=== PATIENT | female | born 1935 | race Caucasian/White ===

== ENCOUNTER 2017-03-08 21:50 | Inpatient (IN) | payer MEDICARE, BC ==
[~2017-03-08] VITALS: Ht 160 cm; Wt 76.2 kg
--- NOTE | ~2017-03-08 | HP ---
ADMIT: 03/08/2017 RM/LOC: 512 [facility] MR#: [id number] [address] [address] [address] [place] [address] Pre-OP History and Physical SEX: F AGE: 81 : 1935 DATE OF SERVICE: CHIEF COMPLAINT: Right hip pain. PRESENT ILLNESS: The patient is an 81-year-old, white female, who has been having 2 or 3-day history of some right hip pain, it drastically got worse yesterday. She was seen in [place] ER and noted to have a displaced femoral neck fracture. PAST MEDICAL HISTORY: The patient one year ago had a left total knee arthroplasty by Dr. Grande, but she was transferred down to [facility]. MEDICATIONS AND ALLERGIES: Please see Dr. Dominguez's medication allergy list. SOCIAL HISTORY: The patient does not smoke or drink alcohol. Again, lives in the [facility]. PHYSICAL EXAMINATION: HEENT: Normocephalic and atraumatic. CV: Regular rate and rhythm. LUNGS: Benign. ABDOMEN: Benign. NEUROLOGICAL: Awake, alert, and oriented x3. MUSCULOSKELETAL: Shows right leg is shortened and externally rotated. Tenderness with toggling in the groin that radiates down the thigh. IMAGING: X-rays show right displaced femoral neck fracture. I do not appreciate any masses. ASSESSMENT AND PLAN: Right hip femoral neck fracture. At this point in time, I believe this is probably a stress fracture, but at the time of bipolar replacement we will evaluate the bone and see if we have to send anything away for pathological analysis. We will plan right hip bipolar. The patient understands the risks and benefits of the surgical intervention and desires to proceed. Triston Kirkland MD/ jade JOB #: [id number] CC: Triston Kirkland, Attending Physician Triston Kirkland, Family Physician
--- NOTE | 2017-03-12 15:05 | OR ---
ADMIT: 03/08/2017 RM/LOC: 512 [facility] MR#: [id number] [address] [address] [place] [address] [address] [place] [address] Operative/Delivery Room Report SEX: F AGE: 81 : 1935 SURGERY DATE: 03/09/2017 SURGEON: Triston Kirkland MD PREOPERATIVE DIAGNOSIS: Right displaced femoral neck stress fracture. POSTOPERATIVE DIAGNOSIS: Right displaced femoral neck stress fracture. PROCEDURE PERFORMED: Right hip bipolar placement with a DePuy system size 3 press-fit fracture stem, a +5 neck length on a 28 inner diameter head. We used a 46 outer diameter bipolar head. FRONT DESK HOST: CHRISTEN Lopez ANESTHESIA: General. ESTIMATED BLOOD LOSS: 100 mL. FLUIDS: Per anesthetic record. COMPLICATIONS: None. DRAINS: None. TOURNIQUET TIME: None. CONDITION ON DISCHARGE: The patient returned to the recovery room in fair condition. INDICATION: The patient sustained the above fracture. She desires surgical intervention. She understood the risks and benefits of procedure and desired to proceed with the operation. DESCRIPTION OF PROCEDURE: The patient was taken to the OR, underwent general anesthesia, laid in the left lateral decubitus position on the OR table. All bony prominences were well padded. Axillary roll was placed. Right hip was prepped and draped in usual sterile fashion. Posterolateral approach was undertaken to the hip. A #10 blade was used to make the incision centered over the greater trochanter for approximately 8-9 inches through the skin and subcutaneous tissue. IT band and vastus lateralis fascia was split in line with the skin incision using a Sheppard scissors. Gluteus zarina was then split in line with its fibers bluntly. Charnley retractor was then placed. External rotators were identified, tagged, cut and reflected posteriorly where capsule was then T'ed. I cut the femoral neck with an oscillating saw one fingerbreadth above the lesser trochanter at a 45-degree angle to the long axis of the femur. I then removed the femoral head and removed any extra bone fragments. This area was thoroughly irrigated with bacitracin solution. I used a box osteotome and removed some lateral femoral neck cortex. I then sequentially reamed and broached to a size 3 broach. Trial components of a +5 ADMIT: 03/08/2017 RM/LOC: 512 [facility] MR#: [id number] [address] [address] [place] M[place]ON[place] [address] [place] [id number] Operative/Delivery Room Report SEX: F AGE: 81 : 1935 neck with a 46 outer diameter head gave excellent range of motion and stability. Thus the trial components were then removed and the hip was thoroughly irrigated with bacitracin solution and dried. The implant was then impacted into place and the hip reduced. I then closed the capsule using #1 Vicryl, ran the hip through range of motion, it had excellent range of motion and stability. External rotators were then reapproximated into the piriformis fossa using drill holes and the Vicryl suture. IT band closed using #1 Vicryl, gluteus zarina fascia closed using #1 Vicryl, subcutaneous tissue closed in layers using 2-0 Vicryl, and skin closed using ang. Wounds were washed, dried, dressed with sterile Adaptic, 4x4s, ABD, and Medipore tape. Drapes were removed. The patient was reversed from general anesthesia, placed in a knee immobilizer, and taken back to the recovery room in fair condition. Triston Kirkland MD/ jade JOB #: [id number] CC: Triston Kirkland, Attending Physician Triston Kirkland, Family Physician
--- NOTE | 2017-03-13 08:26 | ER ---
ADMIT: 03/08/2017 RM/LOC: 512 [facility] MR#: [id number] [address] [address] [address] [place] [address] Emergency Room Report SEX: F AGE: 81 : 1935 DATE: 03/08/2017 CHIEF COMPLAINT: Right hip fracture. HISTORY OF PRESENT ILLNESS: The patient is an 81-year-old female, who comes from [place] via ambulance for further management of a right hip fracture. The patient denies any fall or injury that would have caused trauma or a fracture that she can recall. She lives at home alone, is otherwise fairly healthy for her age. She does have a diagnosis of hypertension, high cholesterol, and a previous left knee replacement. She states that she began having some worsening pain in her right knee at close to bedtime last night but was still able to ambulate during the evening without any difficulty. When she woke up this morning, she had continued right knee pain but worsening pain in her right thigh, and when she tried to bear weight, she had increasing pain in her thigh and her right groin area. She went in to [facility] where they evaluated her and did x-rays, which showed she had a right displaced hip fracture. They contacted Dr. Kirkland and the patient was transferred to our Emergency Department for evaluation and further management. The patient denies any recent illness. She does not have any chest pain or shortness of breath. She denies any abdominal pain, change in bowel or bladder function, or fevers or chills. PAST MEDICAL HISTORY: Hypertension, high cholesterol. PAST SURGICAL HISTORY: Left knee replacement and cataract surgery. MEDICATIONS: See nurse's note. ALLERGIES: NONE. SOCIAL HISTORY: Denies smoking, drug, or alcohol use. Does live at home alone. PHYSICAL EXAMINATION: VITAL SIGNS: Blood pressure is 166/68, pulse 79, respirations 19, temp 98.2, sats 98% on room air. HEENT: Head is atraumatic and normocephalic. Pupils are equal, round, and reactive to light. NECK: Supple. HEART: Regular rate and rhythm. LUNGS: Clear to auscultation. ABDOMEN: Soft, nontender, and nondistended. EXTREMITIES: The patient can move upper extremities without any difficulty. She has good sensation in all 4 extremities. Her right leg is shortened and externally rotated. She has good sensation distally in the right lower extremity and good pulses. She has 1+ pedal edema equal bilateral lower extremities. She does have pain with rotation of her right hip and is unable to flex the hip secondary to pain. She does have a [place] in place. SKIN: Warm and dry. No skin rashes or lesions are noted. Urine in the [place] bag does appear somewhat cloudy. ADMIT: 03/08/2017 RM/LOC: 512 [facility] MR#: [id number] [address] [place] [id number] [place] [address] Emergency Room Report SEX: F AGE: 81 : 1935 EMERGENCY DEPARTMENT COURSE: The patient had most of her workup done prior to arrival in the ER. I did try to get her images loaded into our PAC system, we were unable to. I shot another right hip film and pelvis film which demonstrates the displaced right intertrochanteric hip fracture. Because her urine did appear cloudy, we went ahead and got a urinalysis also even though she had no urinary complaints, which shows that she has 2198 white blood cells, white blood cell clumps, and 3+ leuk esterase. Based on her urinalysis, she does have a urinary tract infection and she was given a dose of Cipro in the Emergency Department. I spoke to Dr. Kirkland, who is on for Orthopedics, and he will be admitting the patient with Medicine to follow. She is to be n.p.o. after midnight. DIAGNOSES: 1. Right hip fracture, likely stress fracture. 2. Urinary tract infection. Marcelo Marie MD/ jade JOB #: [id number] CC: Triston Kirkland MD, Attending Physician Triston Kirkland MD, Family Physician
[2017-03-13] MEDS ORDERED: SENOKOT S1 TAB PO (10:36)
[2017-03-13] MEDS ORDERED: TYLENOL DPS325 MG PO (10:37)
[2017-03-13] MEDS ORDERED: COLACE-DPS100 MG PO (10:37)
[2017-03-13] MEDS ORDERED: MAALOX DPS30 ML PO (10:37)
[2017-03-13] MEDS ORDERED: LOVENOX DP40 MG/0.4 SQ (10:37)
[2017-03-13] MEDS ORDERED: MILK OF MAGNESI10 ML PO (10:37)
[2017-03-13] MEDS ORDERED: ULTRAM DPS50 MG PO (10:38)
[2017-03-13] MEDS ORDERED: ZOCOR DPS40 MG PO (10:38)
[2017-03-13] MEDS ORDERED: TAZTIA XT240 MG PO (10:38)
[2017-03-13] MEDS ORDERED: VITAMIN B COMP1 EACH PO (10:39)
[2017-03-13] MEDS ORDERED: VITAMIN B-121000 MCG IM (10:39)
[2017-03-13] MEDS ORDERED: VITAMIN D35000 UNI1 SQ (10:41)
[2017-03-13] MEDS ORDERED: CALCIUM 600 +1 EAC3 PO (10:42)
[2017-03-13] MEDS ORDERED: CEFTIN DPS500 MG PO (10:42)
--- NOTE | 2017-03-28 12:10 | CO ---
ADMIT: 03/08/2017 RM/LOC: 512 [facility] MR#: [id number] 26[address] [facility] [address] [place] [address] [address] [place] [address] Consultation SEX: F AGE: 81 : 1935 DATE OF CONSULTATION: 03/09/2017 ATTENDING PHYSICIAN: Triston Kirkland CONSULTING PHYSICIAN: Jackelin Dominguez MD CHIEF COMPLAINT: Right leg fracture. HISTORY OF PRESENT ILLNESS: Ms. Hawkins is an 81-year-old female. She has a past medical history significant for hypertension; hyperlipidemia; osteoarthritis of the left knee, status post total knee arthroplasty, who apparently has been having increasing pain of her right hip. I have a hard time getting when the pain actually started in her right leg, but for sure it has been increasing over the last couple of weeks. Notes that yesterday she was having quite a bit of pain with walking around and then notes that this morning or in the middle of the night when she got up to go to the bathroom, she was unable to bear weight. She went to the ER in [place]. They did find that she had a right femoral neck fracture and transferred her here for definitive treatment. She reports she has not had any falls or trauma, reports that she has been rehabbing from her left total knee arthroplasty. PAST MEDICAL HISTORY: Significant for; 1. Hypertension. 2. Hyperlipidemia. 3. Right femur fracture. 4. OA of the knee, status post left total knee arthroplasty. ALLERGIES: NO KNOWN MEDICAL ALLERGIES. MEDICATIONS: 1. Cardizem 240 mg p.o. daily. 2. Ibuprofen p.r.n. 3. Tylenol p.r.n. 4. Zocor 40 mg p.o. daily. 5. Fish oil daily. 6. Vitamin B12 complex daily. 7. Aspirin 81 mg p.o. daily. 8. Vitamin B12, 1000 mcg once a month. SOCIAL HISTORY: She lives alone in [place]. Her son lives nearby. She is . She does not smoke or use any significant alcohol. FAMILY HISTORY: Relatively noncontributory. REVIEW OF SYSTEMS: Obtained, was otherwise essentially negative. PHYSICAL EXAMINATION: GENERAL: She is alert and oriented. She is really in no apparent distress. ADMIT: 03/08/2017 RM/LOC: 512 [facility] MR#: [id number] [address] [address] [address] [place] [id number] Consultation SEX: F AGE: 81 : 1935 HEENT: Pupils are round and reactive. Oropharynx has dry mucous membranes. She has poor dentition. NECK: Supple. HEART: Normal rate with a regular rhythm. LUNGS: Clear to auscultation, although she continues to talk while I am trying to examine her. ABDOMEN: Soft. Bowel sounds are present. EXTREMITIES: She has kind of maybe 1 to 2+ lower extremity edema. Her left leg is in a MAYRA hose. Her right leg is slightly shortened and externally rotated. ASSESSMENT AND PLAN: 1. Right femoral neck fracture. The plan is for OR today and Lovenox for her postop deep venous thrombosis prophylaxis. 2. Urinary tract infection. We will go ahead and treat. 3. Anemia. We will workup. 4. Hypertension. 5. Hyperlipidemia. Continue her Zocor. 6. Nontraumatic fracture. We will also just get some LFTs as well as a vitamin D. She probably needs bone density, she says she has never had one. Jackelin Dominguez MD/ jade JOB #: [id number] CC: Triston Kirkland, Attending Physician Triston Kirkland, Family Physician
--- NOTE | 2017-04-02 13:58 | DS ---
ADMIT: 03/08/2017 RM/LOC: 512 [facility] MR#: [id number] [address] [address] [address] [place] [address] General Discharge Summary SEX: F AGE: 81 : 1935 ADMISSION DATE: 03/08/2017 DISCHARGE DATE: 03/12/2017 REASON FOR ADMISSION: The patient is an 81-year-old female, who had acute onset of severe hip pain while walking. She was seen in [place] ER and found to have displaced femoral neck fracture likely secondary to a stress fracture, which had been sore for a few days prior. She was transferred from [place] under the care of Dr. Kirkland for definitive orthopedic treatment. ADMISSION DIAGNOSES: 1. Right femoral neck fracture, displaced. 2. Urinary tract infection. 3. Anemia. 4. Hypertension. 5. Hyperlipidemia. PROCEDURES PERFORMED: Right hip bipolar hemiarthroplasty. SURGEON: Triston Kirkland MD. STOCKROOM HELPER: CHRISTEN Orellana. ANESTHESIA: General. BLOOD LOSS: 100 mL. COMPLICATIONS: None. HOSPITAL COURSE: Hina was admitted on 03/08/2017 after being transferred from [place] with right hip displaced femoral neck fracture requiring bipolar fixation. She is admitted under orthopedic service by Dr. Kirkland. Primary care needs were met by Dr. Jackelin Dominguez, who was consulted on admission. Urinalysis did show urinary tract infection, and she was started on empiric Cipro. Cultures came back as E. coli resistant to Cipro, so she was switched to Rocephin. On 03/09/2017, she underwent right hip bipolar hemiarthroplasty by Dr. Kirkland. The surgery was otherwise uneventful and successful. Postoperatively, her pain was well controlled with use oral analgesics. She began physical therapy per bipolar protocol. On postoperative day #2, she did have some confusion and paranoia. Noncontrast head CT was obtained, showed normal age-related changes. No acute events. Lovenox was used for DVT prophylaxis. She had no further events while in the hospital. She did have mild acute surgical blood-loss anemia. Hemoglobin dropped to 8.7, but remained hemodynamically stable, did not require transfusion. By postoperative day #3, she was stable and ready for discharge with plans to go back to [facility] in [place] for postoperative rehabilitation. DISCHARGE MEDICATIONS: 1. Senokot b.i.d. p.r.n. 2. Lovenox 40 mg subcu every 24 hours x30 days. ADMIT: 03/08/2017 RM/LOC: 512 [facility] MR#: [id number] [address] [address] [address] [address] [place] [address] General Discharge Summary SEX: F AGE: 81 : 1935 3. Colace p.r.n. 4. Maalox p.r.n. 5. Milk of magnesia p.r.n. 6. Tylenol 650 q.4 p.r.n. 7. Ultram 50 mg 1 to 2 q.6 p.r.n. 8. Taztia 240 mg daily. 9. Zocor 40 mg daily. 10.Vitamin B complex daily. 11.Vitamin B12, 1000 mcg monthly IM. DISCHARGE INSTRUCTIONS: Hina will undergo therapy at [place] per bipolar hip protocol. She will follow up in the Orthopedic office with Dr. Grande in [place] in 2 weeks or earlier if problems arise. Follow up with primary care as directed. Yves Diaz PA-C / Triston Kirkland MD / jade JOB #: [id number] CC: Triston Kirkland MD, Attending Physician Triston Kirkland MD, Family Physician
== END 2017-03-12 12:30 | DRG 470 ==
LOC: ER 21:50 → 5MS 23:20
PROVIDERS: ADMIT Orthopaedic Surgery
PROC: 0SRR01A Replacement of Right Hip Joint, Femoral Surface with Metal Synthetic Substitute, Uncemented, Open Approach (ICD-10-PCS; principal; 2017-03-09)
DX: M84.351A Stress fracture, right femur, initial encounter for fracture (principal); N39.0 Urinary tract infection, site not specified; I10 Essential (primary) hypertension; D62 Acute posthemorrhagic anemia; B96.20 Unspecified Escherichia coli [E. coli] as the cause of diseases classified elsewhere; E78.5 Hyperlipidemia, unspecified; Z96.652 Presence of left artificial knee joint; Z79.82 Long term (current) use of aspirin